=== PATIENT | male | born 1990 | race African-American/Black ===

== ENCOUNTER 2018-05-05 08:40 | Emergency (ER) | payer OTHER ==
[2018-05-05] MEDS: KETOROLAC 60 MG INJ IM (09:15)
== END 2018-05-05 10:20 | disposition home or self-care (01) ==
LOC: FTE 08:40
DX: K08.89 Other specified disorders of teeth and supporting structures (principal); F17.210 Nicotine dependence, cigarettes, uncomplicated
CPT/HCPCS: 96372; 99284-25

== ENCOUNTER 2018-06-28 03:45 | Emergency (ER) | payer MEDICAID, OTHER ==
[2018-06-28] MEDS: KETOROLAC 60 MG INJ IM (04:10)
== END 2018-06-28 04:20 | disposition home or self-care (01) ==
LOC: FTE 03:45
DX: K08.89 Other specified disorders of teeth and supporting structures (principal); F17.210 Nicotine dependence, cigarettes, uncomplicated
CPT/HCPCS: 96372; 99284-25